=== PATIENT | female | born 2000 | race Caucasian/White ===

== ENCOUNTER 2023-11-30 13:36 | Outpatient (CLI) | payer OTHER ==
[~2023-11-30 13:36] MED LIST: GADOTERATE MEGLUMINE 7.5 MMOL/15 ML VIAL ONE
--- NOTE | 2023-11-30 16:35 | MRI Report ---
PROCEDURE: Pelvis W/WO INDICATIONS: ENDOMETRIOSIS, PRIMARY DYSMENORRHEA, MENORRHAGIA CONTRAST: 14ml Clariscan TECHNIQUE: Coronal ultra fast SE, sagittal breath-hold T2 FSE; axial T1 FSE with and without fat saturation thro ugh the pelvis. Optional long- and short-axis uterine nonbreath-hold T2 FSE through the uterus. Sag ittal or axial dynamic ultra fast GE during administration of contrast. Post-contrast axial or coron al ultra fast GE / 2-D spoiled GE with fat saturation from the iliac crests to the symphysis. Option al diffusion weighted imaging and ADC may be performed. COMPARISON: None. FINDINGS: Image quality: Excellent. Uterus: Uterus is normal in size. Endometrium is normal in thickness. Junctional zone is normal in thickness at 12 mm or less. There is slightly heterogeneous T2 signal within the mid uterine segmen t along the inferior margin (series 7, image 14), probably representing intramural fibroids. A pessar y versus Nuva ring present. Adnexa: Both ovaries are normal in size, without suspicious cystic or solid lesions. Just above the left ovary, there are 2 regions of T1 hyperintense signal measuring 1.5 x 0.9 cm and 0.5 x 0.4 cm (se javid 10, image 71). Urinary system: Bladder wall is normal in thickness. Distal ureters are non distended. Urethra nancy ears normal in morphology. Nodes and vessels: No pelvic or inguinal adenopathy by size criteria. Iliac vessels are normal in s ize. Bowel and peritoneum: No pathologic free pelvic fluid. Inferior colon and small bowel loops are nor mal in caliber. Soft tissues: No inguinal hernias. No findings of pelvic floor incompetence in the absence of provo cation. Bones: Marrow demonstrates normal overall signal. IMPRESSION: A couple of T1 hyperintense foci above the left ovary concerning for endometrial deposits. These sabrina ure 1.5 x 0.9 cm and 0.5 x 0.4 cm. A few small intramural fibroids are suspected. Reviewed by: Ajit Pineda MD on 11/30/2023 4:33 PM PDT Approved by: Ajit Pineda MD on 11/30/2023 4:33 PM PDT Station ID: [id number]
[2023-11-30] MEDS: GADOTERATE MEGLUMINE 7.5 MMOL/15 ML VIAL IVP ONE (16:58)
== END 2023-11-30 13:37 | disposition home or self-care (01) ==
LOC: DI 13:36
PROVIDERS: ATTEND Nurse Practitioner
DX: N80.9 Endometriosis, unspecified (principal); N94.4 Primary dysmenorrhea; N92.0 Excessive and frequent menstruation with regular cycle